=== PATIENT | female | born 1995 | race Hispanic/Latino ===

== ENCOUNTER 2020-08-31 07:49 | Emergency (ER) | payer OTHER, SELFPAY ==
[2020-08-31 09:04] LABS: Absolute Lymphocytes (CBC) 1.7 K/uL (0.7-4.9); Basophils % 0.4 % (0-1.3); Hematocrit 33.4 % (36.0-45.0); Lymphocytes % 23.9 % (15.3-44.8); MPV 8.9 fL (7.6-11.3); RBC Red Blood Cell Count 4.53 M/uL (3.86-4.86)
--- NOTE | 2020-08-31 09:15 | ER ---
Nurse's Notes [facility] Name: Julienne Gibson Age: 24 yrs Sex: Female : 1995 Arrival Date: 08/31/2020 Time: 07:52 Bed 18 Private MD: Diagnosis: Other sprain of right foot Presentation: 08/31 07:53 Chief complaint: EMS states: fell off a 3 foot ladder and heard cracking on the right em foot, also reports a syncopal episode for few seconds. Coronavirus screen: Client denies travel out of the [place] in the last 14 days. Ebola Screen: Patient negative for fever greater than or equal to 101.5 degrees Fahrenheit, and additional compatible Ebola Virus Disease symptoms Patient denies exposure to infectious person. Patient denies travel to an Ebola-affected area in the 21 days before illness onset. No symptoms or risks identified at this time. Initial Sepsis Screen: Does the patient meet any 2 criteria? No. Patient's initial sepsis screen is negative. Does the patient have a suspected source of infection? No. Patient's initial sepsis screen is negative. Risk Assessment: Do you want to hurt yourself or someone else? Patient reports no desire to harm self or others. Onset of symptoms was August 31, 2020. 07:53 Method Of Arrival: EMS: [facility] em 07:53 Acuity: JOE 3 em Historical: - Allergies: 07:56 No Known Allergies; em - Home Meds: 07:56 None [Active]; em - PMHx: 07:56 None; em - PSHx: 07:56 None; em - Immunization history:: Adult Immunizations up to date. - Social history:: Smoking status: Patient denies any tobacco usage or history of. Screenin:57 Abuse screen: Denies threats or abuse. Nutritional screening: No deficits noted. em Tuberculosis screening: No symptoms or risk factors identified. Fall Risk None identified. Assessment: 07:53 General: Appears in no apparent distress. comfortable, Behavior is calm, cooperative, em appropriate for age. Pain: Complains of pain in right foot. Neuro: Level of Consciousness is awake, alert, obeys commands, Oriented to person, place, time, situation, Appropriate for age Reports a syncopal episode. Cardiovascular: Capillary refill < 3 seconds Patient's skin is warm and dry. Respiratory: Airway is patent Respiratory effort is even, unlabored, Respiratory pattern is regular, symmetrical. Derm: Skin is intact, is healthy with good turgor, Skin is pink, warm \T\ dry. Musculoskeletal: Circulation, motion, and sensation intact. Capillary refill < 3 seconds, Range of motion: limited in right ankle Swelling present in right foot. 09:25 Reassessment: pending results from labs. em Vital Signs: 07:53 BP 133 / 82; Pulse 89; Resp 18; Temp 98.5(O); Pulse Ox 100% on R/A; em 09:30 BP 127 / 83; Pulse 84; Resp 16; Pulse Ox 99% on R/A; em ED Course: 07:52 Patient arrived in ED. 07:52 Florentin Carrington, RN is Primary Nurse. em 07:53 Jewell Anthony MD is Attending Physician. [facility] 07:56 Triage completed. em 07:56 Arm band placed on. em 07:57 Patient has correct armband on for positive identification. Bed in low position. Call em light in reach. Pulse ox on. NIBP on. 08:27 Initial lab(s) drawn, by me, sent to lab. Inserted saline lock: 20 gauge in right 3 antecubital area, using aseptic technique. Blood collected. 08:38 EKG done, by ED staff, reviewed by Jewell Anthony MD. [facility] 08:52 Lab(s) recollected, by me, sent to lab. [facility] 08:55 Foot Right 3 View XRAY In Process Unspecified. EDMS 09:47 No provider procedures requiring assistance completed. IV discontinued, intact, em bleeding controlled, No redness/swelling at site. Pressure dressing applied. Administered Medications: No medications were administered Outcome: 09:15 Discharge ordered by . fl2 09:47 Discharged to home ambulatory, with friend. em 09:47 Condition: good 09:47 Discharge instructions given to patient, Instructed on discharge instructions, follow up and referral plans. medication usage, Demonstrated understanding of instructions, follow-up care, medications, Prescriptions given X 1. 09:57 Patient left the ED. em Signatures: Dispatcher [employer] EDNY Florentin Carrington, GATITO MEDEROS Maru Mitchell RN RN Nikkie Campbell [facility] Jewell Anthony MD MD ma2 Corrections: (The following items were deleted from the chart) 09:47 09:47 Patient did not have IV access during this emergency room visit. em em
--- NOTE | 2020-08-31 09:15 | EDPHYS ---
Physician Documentation [facility] Name: Julienne Gibson Age: 24 yrs Sex: Female : 1995 Arrival Date: 08/31/2020 Time: 07:52 Bed 18 Private MD: ED Physician Jewell Anthony HPI: 08/31 08:19 This 24 yrs old Female presents to ER via EMS with complaints of Foot Injury. ma2 08:19 The patient presents with an injury. The complaints affect the right foot. Onset: The ma2 symptoms/episode began/occurred suddenly, 1 hour(s) ago. Associated signs and symptoms: Pertinent negatives: nausea, swelling. Severity of symptoms: At their worst the symptoms were mild, in the emergency department the symptoms are unchanged. The patient has not experienced similar symptoms in the past. patient aslo passed out after the fall she states, she felt pain in right foot that was unbearable, never hd syncope before no family hx of sudden brugada or long qt, no family hx of drowning or unexplained . she has no head trauma neck pain or chest pain . Historical: - Allergies: 07:56 No Known Allergies; em - Home Meds: 07:56 None [Active]; em - PMHx: 07:56 None; em - PSHx: 07:56 None; em - Immunization history:: Adult Immunizations up to date. - Social history:: Smoking status: Patient denies any tobacco usage or history of. ROS: 08:19 MS/extremity: Positive for decreased range of motion, Negative for abrasion, ma2 paresthesias, acute changes. 08:19 Constitutional: Negative for fever, chills, and weight loss. 08:19 All other systems are negative. Exam: 08:19 Constitutional: This is a well developed, well nourished patient who is awake, alert, ma2 and in no acute distress. Head/Face: Normocephalic, atraumatic. Eyes: Pupils equal round and reactive to light, extra-ocular motions intact. Lids and lashes normal. Conjunctiva and sclera are non-icteric and not injected. Cornea within normal limits. Periorbital areas with no swelling, redness, or edema. ENT: Nares patent. No nasal discharge, no septal abnormalities noted. Tympanic membranes are normal and external auditory canals are clear. Oropharynx with no redness, swelling, or masses, exudates, or evidence of obstruction, uvula midline. Mucous membranes moist. Neck: Trachea midline, no thyromegaly or masses palpated, and no cervical lymphadenopathy. Supple, full range of motion without nuchal rigidity, or vertebral point tenderness. No Meningismus. Chest/axilla: Normal chest wall appearance and motion. Nontender with no deformity. No lesions are appreciated. Cardiovascular: Regular rate and rhythm with a normal S1 and S2. No gallops, murmurs, or rubs. Normal PMI, no JVD. No pulse deficits. Respiratory: Lungs have equal breath sounds bilaterally, clear to auscultation and percussion. No rales, rhonchi or wheezes noted. No increased work of breathing, no retractions or nasal flaring. Abdomen/GI: Soft, non-tender, with normal bowel sounds. No distension or tympany. No guarding or rebound. No evidence of tenderness throughout. Back: No spinal tenderness. No costovertebral tenderness. Full range of motion. Skin: Warm, dry with normal turgor. Normal color with no rashes, no lesions, and no evidence of cellulitis. MS/ Extremity: right foot ttp over head of 5th metatarsal, ankle exam wnl, skin wnl nPulses equal, no cyanosis. Neurovascular intact. Full, normal range of motion. Neuro: Awake and alert, GCS 15, oriented to person, place, time, and situation. Cranial nerves II-XII grossly intact. Motor strength 5/5 in all extremities. Sensory grossly intact. Cerebellar exam normal. Normal gait. Vital Signs: 07:53 BP 133 / 82; Pulse 89; Resp 18; Temp 98.5(O); Pulse Ox 100% on R/A; em 09:30 BP 127 / 83; Pulse 84; Resp 16; Pulse Ox 99% on R/A; em MDM: 07:[address] [facility] 08:19 Differential diagnosis: fracture, sprain, arthritis, gout. [facility] 09:14 Data reviewed: vital signs, nurses notes. Counseling: I had a detailed discussion with [facility] the patient and/or guardian regarding: the historical points, exam findings, and any diagnostic results supporting the discharge/admit diagnosis, the presence of at least one elevated blood pressure reading (>120/80) during this emergency department visit, the need for outpatient follow up. Response to treatment: the patient's symptoms have markedly improved after treatment. 08/31 08:14 Order name: Basic Metabolic Panel; Complete Time: 09:29 ma2 08/31 08:14 Order name: CBC with Diff; Complete Time: 09: ma2 08/31 08:14 Order name: Magnesium; Complete Time: 09: ma2 08/31 08:14 Order name: Troponin (emerg Dept Use Only); Complete Time: 09: ma2 08/31 08:14 Order name: EKG; Complete Time: 08:15 ma2 08/31 08:14 Order name: Foot Right 3 View XRAY; Complete Time: : ma2 08/31 08:14 Order name: Cardiac monitoring; Complete Time: :33 ma2 08/31 08:14 Order name: EKG - Nurse/Tech; Complete Time: 08: ma2 08/31 08:14 Order name: IV Saline Lock; Complete Time: : ma2 08/31 08:14 Order name: Labs collected and sent; Complete Time: 08: ma2 08/31 08:14 Order name: NPO; Complete Time: 08: ma2 08/31 08:14 Order name: O2 Per Protocol; Complete Time: : ma2 08/31 08:14 Order name: O2 Sat Monitoring; Complete Time: : ma2 08/31 08:44 Order name: Labs - recollect needed; Complete Time: 08:52 08/31 09:16 Order name: Post-op Orthopedic Shoe; Complete Time: 09:27 ma2 Administered Medications: No medications were administered Disposition: 08/31/20 09:15 Discharged to Home. Impression: Other sprain of right foot. - Condition is Stable. - Discharge Instructions: Foot Sprain. - Prescriptions for Diclofenac Sodium 75 mg Oral Tablet Sustained Release - take 1 tablet by ORAL route 2 times per day; 30 tablet. - Work release form, Medication Reconciliation Form, Thank You Letter, Antibiotic Education, Prescription Opioid Use form. - Follow up: Private Physician; When: Tomorrow; Reason: Recheck today's complaints, Continuance of care. Signatures: Dispatcher [employer] Anitra Larson Edgar, RN RN Jewell Nguyen MD MD ma2 Corrections: (The following items were deleted from the chart) 09:57 09:15 08/31/2020 09:15 Discharged to Home. Impression: Other sprain of right foot. em Condition is Stable. Forms are Medication Reconciliation Form, Thank You Letter, Antibiotic Education, Prescription Opioid Use. Follow up: Private Physician; When: Tomorrow; Reason: Recheck today's complaints, Continuance of care. ma2
[2020-08-31 09:19] LABS: BUN Blood Urea Nitrogen 15 mg/dL (7-18); Bicarbonate 27 mmol/L (21-32); Glucose Level 95 mg/dL (74-106); Magnesium 1.9 mg/dL (1.8-2.4); Potassium 3.4 mmol/L (3.5-5.1); Sodium Level 138 mmol/L (136-145); Troponin (Emerg Dept Use Only) < 0.02 ng/mL (0.0-0.045)
--- NOTE | 2020-08-31 09:19 | RAD REPORT ---
EXAM DESCRIPTION: RAD - Foot Right 3 View - 08/31/2020 8:55 am CLINICAL HISTORY: Right foot pain status post injury FINDINGS: No fracture or dislocation is seen
[2020-08-31 11:18] VITALS: TEMP 98.5
[2020-08-31 11:20] VITALS: BP 127/83; O2SAT 99
== END 2020-08-31 09:57 | disposition home or self-care (01) ==
LOC: ER 07:49
DX: S93.691A Other sprain of right foot, initial encounter (principal); W19.XXXA Unspecified fall, initial encounter; Y93.9 Activity, unspecified; Y92.9 Unspecified place or not applicable
CPT/HCPCS: 36415; 80048; 83735; 84484; 85025; 93005; 99284

== ENCOUNTER 2020-11-09 18:38 | Emergency (ER) | payer OTHER, SELFPAY ==
[2020-11-09 20:11] LABS: Urine Blood 2+ (NEG); Urine Glucose NEGATIVE (NEG); Urine Protein 2+ (NEG); Urine pH 5.5 (5.0-7.0)
[2020-11-09 20:19] LABS: Urine Bacteria 20-50 /HPF (<20); Urine RBC <5 /HPF (NONE SEEN); Urine Urothelial Cells <5 /HPF (NONE SEEN)
[2020-11-09 20:48] LABS: Absolute Lymphocytes (CBC) 0.9 K/uL (0.7-4.9); Basophils % 0.3 % (0-1.3); Hematocrit 35.6 % (36.0-45.0); Lymphocytes % 7.7 % (15.3-44.8); MPV 8.7 fL (7.6-11.3); RBC Red Blood Cell Count 4.81 M/uL (3.86-4.86)
[2020-11-09] MEDS ORDERED: CEFTRIAXONE/SWI 1gm 1 GM/10 ML SYR ONE (20:55)
[2020-11-09] MEDS ORDERED: ONDANSETRON 4 MG/2 ML VIAL ONE (20:55)
[2020-11-09] MEDS ORDERED: NA CHLORIDE 0.9% 1,000 ML ONE (20:55)
[2020-11-09] MEDS ORDERED: KETOROLAC 30 MG/ML INJ ONE (20:55)
[2020-11-09 22:39] LABS: SARS-COV-2 RT PCR NEGATIVE (NEGATIVE)
--- NOTE | 2020-11-09 22:44 | EDPHYS ---
Physician Documentation [facility] Name: Julienne Gibson Age: 24 yrs Sex: Female : 1995 Arrival Date: 11/09/2020 Time: 18:44 Bed 5 Private MD: ED Physician Jcarlos Craft HPI: 11/09 22:42 This 24 yrs old Female presents to ER via Ambulatory with complaints of Fever, kb Headache, Urinary Problem. 22:42 The patient presents with urinary symptoms, dysuria, frequency. Onset: The kb symptoms/episode began/occurred last week. Modifying factors: The symptoms are alleviated by nothing, the symptoms are aggravated by urinating. Associated signs and symptoms: Pertinent positives: dysuria, urinary frequency. Severity of symptoms: At their worst the symptoms were moderate, in the emergency department the symptoms are unchanged. The patient has not experienced similar symptoms in the past. The patient has not recently seen a physician. Pt states she has had urinary frequency and dysuria since last week. States she was started on Bactrim on Saturday and symptoms started getting better, but today she was running fever. 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 - Social history:: Smoking status: Patient denies any tobacco usage or history of. ROS: 22:41 Cardiovascular: Negative for chest pain, palpitations, and edema, Respiratory: Negative kb for shortness of breath, cough, wheezing, and pleuritic chest pain, Abdomen/GI: Negative for abdominal pain, nausea, vomiting, diarrhea, and constipation, MS/Extremity: Negative for injury and deformity, Skin: Negative for injury, rash, and discoloration, Neuro: Negative for headache, weakness, numbness, tingling, and seizure. 22:41 Constitutional: Positive for fever. 22:41 : Positive for urinary symptoms, urinary frequency, burning with urination. Exam: 22:41 Constitutional: This is a well developed, well nourished patient who is awake, alert, kb and in no acute distress. Head/Face: Normocephalic, atraumatic. Chest/axilla: Normal chest wall appearance and motion. Nontender with no deformity. No lesions are appreciated. Cardiovascular: Regular rate and rhythm with a normal S1 and S2. No gallops, murmurs, or rubs. Normal PMI, no JVD. No pulse deficits. Respiratory: Lungs have equal breath sounds bilaterally, clear to auscultation and percussion. No rales, rhonchi or wheezes noted. No increased work of breathing, no retractions or nasal flaring. Abdomen/GI: Soft, non-tender, with normal bowel sounds. No distension or tympany. No guarding or rebound. No evidence of tenderness throughout. Back: No spinal tenderness. No costovertebral tenderness. Full range of motion. Skin: Warm, dry with normal turgor. Normal color with no rashes, no lesions, and no evidence of cellulitis. MS/ Extremity: Pulses equal, no cyanosis. Neurovascular intact. Full, normal range of motion. Neuro: Awake and alert, GCS 15, oriented to person, place, time, and situation. Cranial nerves II-XII grossly intact. Motor strength 5/5 in all extremities. Sensory grossly intact. Cerebellar exam normal. Normal gait. Vital Signs: 18:55 BP 110 / 73; Pulse 104; Resp 17; Temp 98.9; Pulse Ox 98% ; Weight 61.23 kg; Height 5 ll1 ft. 4 in. (162.56 cm); Pain 9/10; 22:00 BP 112 / 78; Pulse 88; Resp 18; Pulse Ox 98% ; wh 23:00 BP 106 / 77; Pulse 84; Resp 18; Pulse Ox 98% on R/A; wh 18:55 Body Mass Index 23.17 (61.23 kg, 162.56 cm) ll1 MDM: 20:21 Patient medically screened. marcus 22:41 Data reviewed: vital signs, nurses notes. Data interpreted: Pulse oximetry: on room air kb is 98 %. Interpretation: normal. Counseling: I had a detailed discussion with the patient and/or guardian regarding: the historical points, exam findings, and any diagnostic results supporting the discharge/admit diagnosis, lab results, the need for outpatient follow up, a family practitioner, to return to the emergency department if symptoms worsen or persist or if there are any questions or concerns that arise at home. 11/09 19:58 Order name: Urine Dipstick--Ancillary (enter results) sg 11/09 19:58 Order name: Urine Microscopic Only sg 11/09 19:59 Order name: Urine Dipstick-Ancillary; Complete Time: 20:17 EDMS 11/09 19:59 Order name: Urine Microscopic Only; Complete Time: 20:21 EDMS 11/09 19:59 Order name: Urine --Ancillary (enter results); Complete Time: 20:17 sg 11/09 20:17 Order name: Basic Metabolic Panel; Complete Time: 21:01 kb 11/09 20:17 Order name: CBC with Diff; Complete Time: 21:10 kb 11/09 20:20 Order name: Urine Culture EDMS 11/09 21:02 Order name: COVID-19 : Document "Date of Symptom Onset" if Symptomatic. kb 11/09 21:02 Order name: Flu kb 11/09 22:40 Order name: COVID-19/FLU A+B; Complete Time: 22:41 EDMS 11/09 20:17 Order name: IV Saline Lock; Complete Time: 20:36 kb 11/09 20:17 Order name: Labs collected and sent; Complete Time: 20:36 kb Administered Medications: 20:47 Drug: NS 0.9% 1000 ml Route: IV; Rate: 1000 ml; Site: right antecubital; 23:03 Follow up: Response: No adverse reaction; IV Status: Completed infusion 20:49 Drug: TORadol - Ketorolac 15 mg Route: IVP; Site: right antecubital; 23:03 Follow up: Response: No adverse reaction; Pain is decreased 20:51 Drug: Rocephin 1 grams Route: IV; Rate: calculated rate; Site: right antecubital; 23:03 Follow up: Response: No adverse reaction; IV Status: Completed infusion 20:53 Drug: Zofran (Ondansetron) 4 mg Route: IVP; Site: right antecubital; 23:03 Follow up: Response: No adverse reaction; Nausea is decreased Disposition: 11/10 05:57 Co-signature as Attending Physician, Jcarlos PUGH I agree with the assessment and marcus plan of care. Disposition: 11/09/20 22:43 Discharged to Home. Impression: Urinary tract infection, site not specified. - Condition is Stable. - Discharge Instructions: Urinary Tract Infection, Adult, [id number]. - Prescriptions for Augmentin 875- 125 mg Oral Tablet - take 1 tablet by ORAL route every 12 hours for 10 days; 20 tablet. - Medication Reconciliation Form, Thank You Letter, Antibiotic Education, Prescription Opioid Use form. - Follow up: Emergency Department; When: As needed; Reason: Worsening of condition. Follow up: Private Physician; When: 2 - 3 days; Reason: Recheck today's complaints, Continuance of care, Re-evaluation by your physician. Signatures: Dispatcher [employer] [facility] Ninoska Mcpherson, YISSEL-C BIODIESEL ENGINE SPECIALIST-Jcarlos Shukla MD MD cha Habalo, Winsy, RN RN Brianna Myrick RN RN ll1 Corrections: (The following items were deleted from the chart) 11/09 21:48 21:03 CORONAVIRUS ordered. [facility] 21:48 21:03 Influenza Screen (A ordered. [facility] 23:04 22:43 11/09/2020 22:43 Discharged to Home. Impression: Urinary tract infection, site wh not specified. Condition is Stable. Forms are Medication Reconciliation Form, Thank You Letter, Antibiotic Education, Prescription Opioid Use. Follow up: Emergency Department; When: As needed; Reason: Worsening of condition. Follow up: Private Physician; When: 2 - 3 days; Reason: Recheck today's complaints, Continuance of care, Re-evaluation by your physician. kb
--- NOTE | 2020-11-09 22:44 | ER ---
Nurse's Notes [facility] Name: Julienne Gibson Age: 24 yrs Sex: Female : 1995 Arrival Date: 11/09/2020 Time: 18:44 Bed 5 Private MD: Diagnosis: Urinary tract infection, site not specified Presentation: 11/09 18:55 Chief complaint: Patient states: Dysuria for 1 week. Pain started in her lower back ll1 Saturday. Fever up to 102 at home with ARCHER. + N/V x3 today, + decreased appetite. Been on Bactrim since yesterday, no improvement. 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 Coronavirus screen: Client denies travel out of the [place] in the last 14 days. chills, fatigue, fever, headache, nausea, shaking with chills, vomiting. Client presents with at least one sign or symptom that may indicate coronavirus-19. Standard/surgical mask placed on the client. Ebola Screen: Patient denies travel to an Ebola-affected area in the 21 days before illness onset. Initial Sepsis Screen: Does the patient meet any 2 criteria? HR > 90 bpm. No. Patient's initial sepsis screen is negative. Does the patient have a suspected source of infection? Yes: Dysuria/Frequency/Urgency/UTI. Risk Assessment: Do you want to hurt yourself or someone else? Patient reports no desire to harm self or others. Onset of symptoms was November 02, 2020. 18:55 Method Of Arrival: Ambulatory ll1 18:55 Acuity: JOE 3 ll1 Triage Assessment: 21:00 Pain: Pain currently is 5 out of 10 on a pain scale. Pain began gradually, Also wh complains of nausea. 21:00 Headache History: The patient has had previous headaches and this one is similar to previous episodes. General: Appears in no apparent distress. 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 - Social history:: Smoking status: Patient denies any tobacco usage or history of. Screenin:30 Abuse screen: Denies threats or abuse. Denies injuries from another. Nutritional screening: No deficits noted. Tuberculosis screening: No symptoms or risk factors identified. Fall Risk None identified. Assessment: 20:30 General: Appears in no apparent distress. Behavior is calm, cooperative, appropriate wh for age. Pain: Complains of pain in headache. Neuro: Level of Consciousness is awake, alert, obeys commands, Oriented to person, place, time, situation, Appropriate for age Reports headache. Cardiovascular: Capillary refill < 3 seconds. Respiratory: Airway is patent Respiratory effort is even, unlabored, Respiratory pattern is regular, symmetrical. GI: Abdomen is flat, non-distended, Abd is soft and non tender X 4 quads. : Reports UTI. EENT: No signs and/or symptoms were reported regarding the EENT system. Derm: Skin is intact, is healthy with good turgor, Skin is pink, warm \T\ dry. normal. Musculoskeletal: Circulation, motion, and sensation intact. 22:00 Reassessment: Patient appears in no apparent distress at this time. No changes from previously documented assessment. Patient and/or family updated on plan of care and expected duration. Pain level reassessed. Patient is alert, oriented x 3, equal unlabored respirations, skin warm/dry/pink. 23:00 Reassessment: Patient appears in no apparent distress at this time. Patient and/or family updated on plan of care and expected duration. Pain level reassessed. Patient is alert, oriented x 3, equal unlabored respirations, skin warm/dry/pink. Patient states feeling better. Patient states symptoms have improved. Vital Signs: 18:55 BP 110 / 73; Pulse 104; Resp 17; Temp 98.9; Pulse Ox 98% ; Weight 61.23 kg; Height 5 ll1 ft. 4 in. (162.56 cm); Pain 9/10; 22:00 BP 112 / 78; Pulse 88; Resp 18; Pulse Ox 98% ; wh 23:00 BP 106 / 77; Pulse 84; Resp 18; Pulse Ox 98% on R/A; wh 18:55 Body Mass Index 23.17 (61.23 kg, 162.56 cm) ll1 ED Course: 18:44 Patient arrived in ED. mr 18:59 Triage completed. ll1 18:59 Arm band placed on. ll1 20:16 Ninoska Mcpherson FNP-C is PHCP. kb 20:16 Jcarlos Craft MD is Attending Physician. kb 20:30 Patient has correct armband on for positive identification. Placed in gown. Bed in low wh position. Call light in reach. Side rails up X 1. Pulse ox on. NIBP on. 20:36 Andrew Werner, RN is Primary Nurse. 21:00 No provider procedures requiring assistance completed. Inserted saline lock: 20 gauge in right antecubital area, using aseptic technique. Blood collected. 23:02 IV discontinued, intact, bleeding controlled, No redness/swelling at site. Administered Medications: 20:47 Drug: NS 0.9% 1000 ml Route: IV; Rate: 1000 ml; Site: right antecubital; 23:03 Follow up: Response: No adverse reaction; IV Status: Completed infusion 20:49 Drug: TORadol - Ketorolac 15 mg Route: IVP; Site: right antecubital; 23:03 Follow up: Response: No adverse reaction; Pain is decreased 20:51 Drug: Rocephin 1 grams Route: IV; Rate: calculated rate; Site: right antecubital; 23:03 Follow up: Response: No adverse reaction; IV Status: Completed infusion 20:53 Drug: Zofran (Ondansetron) 4 mg Route: IVP; Site: right antecubital; 23:03 Follow up: Response: No adverse reaction; Nausea is decreased Outcome: 22:43 Discharge ordered by . kb 23:01 Discharged to home ambulatory. 23:01 Condition: stable 23:01 Discharge instructions given to patient, Instructed on discharge instructions, follow up and referral plans. medication usage, POC Demonstrated understanding of instructions, follow-up care, medications, POC Prescriptions given X 1. 23:04 Patient left the ED. Signatures: Ninoska Mcpherson, YISSEL-C AIR INTELLIGENCE SPECIALIST-[place]bellb Taryn Salcedo mr Andrew Werner, RN GATITO Brianna Myrick RN RN ll1
[2020-11-09 23:14] VITALS: TEMP 98.9; O2SAT 98
[2020-11-09 23:31] VITALS: BP 106/77
== END 2020-11-09 23:04 | disposition home or self-care (01) ==
LOC: ER 18:38
DX: N39.0 Urinary tract infection, site not specified (principal); Z20.822 Contact with and (suspected) exposure to COVID-19
CPT/HCPCS: 96365; 87088; 85025; 87086; 80048; 36415; 81025; 0240U; 96375; 99284; 96366; J0696; J7030; J2405; 81003; 81015